=== PATIENT | female | born 1980 | race Caucasian/White ===

== ENCOUNTER 2019-06-28 05:39 | Day surgery (SDC) | payer OTHER ==
[2019-06-21 10:14] LABS: ABSOLUTE EOSINOPHILS # (AUTO) 0.1 10^3/uL (0.0-0.6); ABSOLUTE LYMPHOCYTES (AUTO) 1.7 10^3/uL (0.5-4.7); ABSOLUTE MONOCYTES (AUTO) 0.4 10^3/uL (0.1-1.4); ABSOLUTE NEUT (AUTO) 2.8 10^3/uL (1.7-8.2); BASOPHILS % (AUTO) 0.8 % (0-2); EOSINOPHILS % (AUTO) 1.8 % (0-6); HEMATOCRIT 37.4 % (36.0-47.0); HEMOGLOBIN 12.9 g/dL (12.0-15.5); LYMPHOCYTES % (AUTO) 33.7 % (13-45); MEAN CORPUSCULAR HEMOGLOBIN 31.7 pg (27.0-33.4); MEAN CORPUSCULAR HGB CONC 34.5 g/dL (32.0-36.0); MEAN CORPUSCULAR VOLUME 92 fl (80-97); MONOCYTES % (AUTO) 7.8 % (3-13); PLATELET COUNT 202 10^3/uL (150-450); RED BLOOD COUNT 4.07 10^6/uL (3.72-5.28); SEGMENTED NEUTROPHILS % (AUTO) 55.9 % (42-78); TOTAL CELLS COUNTED % (AUTO) 100 %
[2019-06-21 10:48] LABS: ANION GAP 10 (5-19); BLOOD UREA NITROGEN 12 mg/dL (7-20); CALCIUM 9.7 mg/dL (8.4-10.2); CARBON DIOXIDE 25 mmol/L (22-30); CHLORIDE 105 mmol/L (98-107); GLUCOSE 87 mg/dL (75-110); POTASSIUM 4.2 mmol/L (3.6-5.0)
--- NOTE | 2019-06-21 22:17 | EKG REPORT ---
SEVERITY:- NORMAL ECG - SINUS RHYTHM : Confirmed by: Toy Vincent 21-Jun-2019 22:16:19
[~2019-06-28 05:39] MED LIST: CEFAZOLIN 1 GM/D5W RTU 1 GM/50 ML RTUPB IV ONE; CEFAZOLIN 1 GM/D5W RTU 1 GM/50 ML RTUPB IV PRN; LACTATED RINGERS 1000 ML IV PRN; LIDOCAINE 0.5% INJ-PF (5 MG/ML) 50 ML SDV SUBCUT PRN
[2019-06-28 06:12] LABS: APPEARANCE,URINE SLIGHTLY-CLOUDY; BILIRUBIN,URINE NEGATIVE (NEGATIVE); COLOR,URINE YELLOW; GLUCOSE, URINE NEGATIVE (NEGATIVE); KETONES,URINE NEGATIVE (NEGATIVE); LEUKOCYTE ESTERASE,URINE NEGATIVE (NEGATIVE); NITRITE,URINE NEGATIVE (NEGATIVE); PROTEIN,URINE NEGATIVE (NEGATIVE); URINE SPECIFIC GRAVITY 1.018
[2019-06-28] MEDS ORDERED: FENTANYL CITRATE INJ/PF 250 MCG/5 ML AMPULE ONE (06:41)
[2019-06-28] MEDS ORDERED: MIDAZOLAM 2 MG/2 ML INJ ONE (06:41)
[2019-06-28] MEDS ORDERED: PROPOFOL INJ 200 MG/20 ML VIAL IV ONE (06:42)
[2019-06-28] MEDS ORDERED: DIPHENHYDRAMINE HCL 50 MG/ML VIAL IV PRN (06:53)
[2019-06-28] MEDS ORDERED: FENTANYL CITRATE INJ/PF 100 MCG/2 ML AMPUL IV PRN ×3 (06:53)
[2019-06-28] MEDS ORDERED: ONDANSETRON HCL INJ/PF 4 MG/2 ML SDV IV PRN (06:53)
[2019-06-28] MEDS ORDERED: LIDOCAINE 1% INJ-PF (10 MG/ML) 30 ML SDV ONE (07:10)
[2019-06-28 07:15] LABS: INTERNATIONAL RATION (INR) 1.04; PROTHROMBIN TIME 13.6 SEC (11.4-15.4)
[2019-06-28] MEDS ORDERED: BUPIVACAINE HCL 0.25 % INJ/PF (2.5 MG/1 ML) 30 ML VIAL ONE (07:22)
[2019-06-28 07:23] LABS: ALBUMIN 4.2 g/dL (3.5-5.0); ALKALINE PHOSPHATASE 89 U/L (38-126); ASPARTATE AMINO TRANSFERASE 21 U/L (14-36); BILIRUBIN,DIRECT 0.1 mg/dL (0.0-0.4); BILIRUBIN,TOTAL 0.5 mg/dL (0.2-1.3); TOTAL PROTEIN 6.8 g/dL (6.3-8.2)
[2019-06-28] MEDS ORDERED: SCOPOLAMINE HYDROBROMIDE 1.5 MG PATCH.TD72 ONE (07:29)
[2019-06-28] MEDS ORDERED: SUGAMMADEX SODIUM 200 MG/2 ML SDV IV ONE (08:20)
[2019-06-28] MEDS ORDERED: OXYCODONE-ACETAMINOPHEN 5-325 MG TABLET PO PRN (08:52)
[2019-06-28] MEDS ORDERED: KETOROLAC TROMETHAMINE INJ/PF 30 MG/1 ML SDV ONE (08:57)
[2019-06-28] MEDS ORDERED: PROMETHAZINE HCL INJ 25 MG/1 ML VIAL ONE (09:28)
[2019-06-28] MEDS ORDERED: OXYCODONE-ACETAMINOPHEN 5-325 MG TABLET ONE (09:39)
[2019-06-28 12:04] VITALS: BP 109/65
[2019-06-28] MEDS ORDERED: NEOSTIGMINE METHYLSULFATE 10 MG/10 ML VIAL ONE (12:35)
[2019-06-28] MEDS ORDERED: METOCLOPRAMIDE HCL INJ/PF 10 MG/2 ML SDV ONE (12:35)
[2019-06-28] MEDS ORDERED: GLYCOPYRROLATE 1 MG/5 ML VIAL ONE (12:35)
[2019-06-28] MEDS ORDERED: ONDANSETRON HCL INJ/PF 4 MG/2 ML SDV ONE (12:35)
[2019-06-28] MEDS ORDERED: ROCURONIUM BROMIDE INJ 50 MG/5 ML VIAL IV ONE (12:35)
[2019-06-28] MEDS ORDERED: LIDOCAINE 2% INJ-PF (20 MG/ML) 2 ML AMPUL ONE (12:35)
--- NOTE | 2019-07-16 16:00 | Operative Report ---
Operative Report DATE OF SURGERY: 06/28/19 PREOPERATIVE DIAGNOSIS: Pelvic pain POSTOPERATIVE DIAGNOSIS: Same OPERATION: D&C laparoscopy SURGEON: JESSENIA DURON ANESTHESIA: GA TISSUE REMOVED OR ALTERED: Endometrium COMPLICATIONS: None QUANTITATIVE BLOOD LOSS: 25 INTRAOPERATIVE FINDINGS: Bilateral hydrosalpinx with dense adhesions between the uterus and the abdominal wall PROCEDURE: Patient was brought into the operating room. She was placed on the table in a supine position and inducted under general anesthesia. Patient was repositioned in a dorsolithotomy position. The bladder was drained of 100 cc of clear yellow urine. A pelvic examination was then performed under general anesthesia. A bivalve speculum was inserted and opened. The cervix was grasped on its anterior lip with a single-tooth tenaculum. Uterus was sounded to 7 cm. A tenaculum and probe was inserted. The bivalve speculum was removed. Attention was turned toward the abdominal wall. A veress needle was inserted through the umbilicus and carried through the various layers until the abdominal cavity was entered. A drop of saline was placed in the veress needle and the abdomen was picked up. The drop of saline easily egressed into the abdominal cavity. The CO2 insufflator was then hooked up and turned on. Opening pressures were 5 cm of water. The insufflator was then turned onto high flow and approximately 3 L of C02 were injected to establish a pneumoperitoneum. Having established the pneumoperitoneum the varess needle was removed and a small incision was made infraumbilically. Through this incision a trocar and sleeve were inserted. The trocar was then removed. Through the sleeve a laparoscope was then inserted. There was good visualization of the pelvic structures. The laparoscope was then repositioned and the rest of the abdominal cavity was visualized and photographed. This terminated the procedure. The CO2 was disconnected and the pneumoperitoneum was then deflated. The equipment was then removed. The defect in the fascia was then repaired with 0 Vicryl. The skin edges were reapproximated with a subcuticular using 4-0 Prolene. Attention was then turned back to the vagina the tenaculum probe was then removed. Is no evidence of active bleeding at this point in time. This terminated the procedure. Patient was placed back in the lithotomy position. Anesthesia was then discontinued. And the patient transferred to recovery room in satisfactory condition. Estima carlos blood loss was negligible
== END 2019-06-28 10:45 | disposition home or self-care (01) ==
LOC: OROUT 05:39
PROVIDERS: ATTEND Obstetrics & Gynecology
DX: N93.8 Other specified abnormal uterine and vaginal bleeding (principal); R10.2 Pelvic and perineal pain; N73.6 Female pelvic peritoneal adhesions (postinfective); N70.11 Chronic salpingitis; J45.909 Unspecified asthma, uncomplicated; I73.00 Raynaud's syndrome without gangrene; K44.9 Diaphragmatic hernia without obstruction or gangrene; Z88.2 Allergy status to sulfonamides; Z79.899 Other long term (current) drug therapy
CPT/HCPCS: 93005; 36415 ×2; 85025; 85610; 85730; 81025; 80076; 80048; 81001; 93010; 00840; 58120; 49320; J2250; J0690; J3490 ×5; J3010; J1885; J2765; J2710; J2550; J2405; J2704; 840

== ENCOUNTER 2019-11-30 17:51 | Emergency (ER) | payer OTHER ==
--- NOTE | 2019-11-30 18:06 | ER Document Report ---
ED Medical Screen (RME) - General Chief Complaint: Nausea Stated Complaint: SHAKING,NAUSEA Time Seen by Provider: 11/30/19 17:58 Primary Care Provider: ESTRADA BECK PA-C [Primary Care Provider] - Follow up as needed Notes: 39-year-old female presents for nausea/vomiting that started today and low-grade fever of 100.4. Patient states she is also had a cough. Patient went to [facility] and was sent to the ER for concern of coronavirus. Patient denies any travel outside of [place]. Patient states her is currently stationed in [place] in the [employer] there are quarantined due to coronavirus and he sent her a sealed package recently but she has not opened this yet. Patient states her is not having any symptoms. Lungs clear to auscultation bilaterally. Abdomen soft nontender. I have greeted and performed a rapid initial assessment of this patient. A comprehensive ED assessment and evaluation of the patient, analysis of test results and completion of the medical decision making process with be conducted by additional ED providers. TRAVEL OUTSIDE OF THE [place] IN LAST 30 DAYS: No - Related Data Allergies/Adverse Reactions: Sulfa (Sulfonamide Antibiotics) Allergy (Severe, Verified 06/21/19 08:30) Seizures acetaminophen [From Lortab] Allergy (Verified 06/28/19 05:51) hydrocodone [From Lortab] Allergy (Verified 06/28/19 05:51) Past Medical History - Past Medical History Cardiac Medical History: Denies: Hx Coronary Artery Disease, Hx Heart Attack, Hx Hypertension Pulmonary Medical History: Reports: Hx Asthma - albuterol prn Denies: Hx Bronchitis, Hx COPD, Hx Pneumonia Neurological Medical History: Denies: Hx Cerebrovascular Accident, Hx Seizures Musculoskeltal Medical History: Denies Hx Arthritis - Immunizations Hx Diphtheria, Pertussis, Tetanus Vaccination: Yes - unk Physical Exam - Vital signs Vitals: Temp Pulse Resp BP Pulse Ox 98.0 F 113 H 18 133/76 H 100 11/30/19 17:55 11/30/19 17:55 11/30/19 17:55 11/30/19 17:55 11/30/19 17:55 Course - Vital Signs Vital signs: Temp Pulse Resp BP Pulse Ox 98.0 F 113 H 18 133/76 H 100 11/30/19 17:55 11/30/19 17:55 11/30/19 17:55 11/30/19 17:55 11/30/19 17:55 Doctor's Discharge - Discharge Referrals: ESTRADA BECK PA-C [Primary Care Provider] - Follow up as needed
--- NOTE | 2019-11-30 18:30 | RADIOLOGY REPORT (SQ) ---
EXAM DESCRIPTION: CHEST 2 VIEWS COMPLETED DATE/TIME: 11/30/2019 6:20 pm REASON FOR STUDY: cough, fever COMPARISON: None. TECHNIQUE: Frontal and lateral radiographic views of the chest acquired. NUMBER OF VIEWS: Two view. LIMITATIONS: None. FINDINGS: LUNGS AND PLEURA: No opacities, masses or pneumothorax. No pleural effusion. MEDIASTINUM AND HILAR STRUCTURES: No masses or contour abnormalities. HEART AND VASCULAR STRUCTURES: Heart normal size. No evidence for failure. BONES: No acute findings. HARDWARE: None in the chest. OTHER: No other significant finding. IMPRESSION: NO SIGNIFICANT RADIOGRAPHIC FINDING IN THE CHEST. TECHNICAL DOCUMENTATION: JOB ID: [id number] 2010 [employer]- All Rights Reserved Reading location - IP/workstation name: [email or web address]
--- NOTE | 2019-11-30 18:39 | ER Document Report ---
ED General - General Chief Complaint: Nausea Stated Complaint: SHAKING,NAUSEA Time Seen by Provider: 11/30/19 17:58 Primary Care Provider: ESTRADA BECK PA-C [Primary Care Provider] - Follow up as needed Notes: per triage note patient arrives to er with a complaint of nausea, dry cough, shortness of breath and "tremors" patient states she went to [facility] and they sent her here because of "symptoms of hobson virus" patient has not traveled out of the country or had contact with anyone who has traveled out of the country or infected with hobson virus. patient states her coughing started last night and kept her up. patient states she has a hx of asthma and had to use her inhaler. patient states she "felt cruddy" so she checked her temperature and it was "around 100.4" patient states she took motrin around 1500 and took zofran around 1715. patient provided with a mask at this time. patient breaths e/u, nad 39-year-old female presents for nausea/vomiting that started today and low-grade fever of 100.4. Patient states she is also had a cough. Patient went to [facility] and was sent to the ER for concern of coronavirus. Patient denies any travel outside of [place]. Patient states her is currently stationed in [place] in the [employer] there are quarantined due to coronavirus and he sent her a sealed package recently but she has not opened this yet. Patient states her is not having any symptoms. Lungs clear to auscultation bilaterally. Abdomen soft nontender. Because of protocol and coronavirus alerts at this time by CDC and health department.. We called office machine embossograph operator who called health department and I also called [facility] ED I spoke with Dr Moreira at @ [phone] And she advised no packages have been vectors for dz; also I spoke with Health Dept Pieter at 1904 who advised same criteria plus flu/resp panels first before coronavirus testing. Patient herself reports she was walking to the desk and felt lightheaded and dizzy and had tremors. She has a history of hypoglycemia but had eaten some peanut butter and applesauce to take with her Motrin prior to arrival. Patient has a history of asthma since she was a baby and was tested by skin prick for allergens on her back at by age 6. 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 She has been wiping down her doorknobs and her refrigerator doors and flexors to the toilet all with Lysol wipes. She did go to [employer] this week but wipe down everything with a cleansing wipe. Patient has been feeling dizzy as well with some sore throat. TRAVEL OUTSIDE OF THE U.S. IN LAST 30 DAYS: No - HPI Onset/Duration: Sudden Associated symptoms: Body/muscle aches, Nonproductive cough, Fever, Headache, Na usea Exacerbated by: Denies Relieved by: Denies Similar symptoms previously: No Recently seen / treated by doctor: No - Related Data Allergies/Adverse Reactions: Sulfa (Sulfonamide Antibiotics) Allergy (Severe, Verified 06/21/19 08:30) Seizures acetaminophen [From Lortab] Allergy (Verified 06/28/19 05:51) hydrocodone [From Lortab] Allergy (Verified 06/28/19 05:51) Home Medications: cymbalta, adderall, fioricet, vit d, iron, b12 Past Medical History - General Information source: Patient - Social History Smoking Status: Never Smoker Cigarette use (# per day): No Chew tobacco use (# tins/day): No Smoking Education Provided: No Frequency of alcohol use: None Drug Abuse: None Lives with: Family Family History: Reviewed & Not Pertinent Patient has suicidal ideation: No Patient has homicidal ideation: No - Past Medical History Cardiac Medical History: Denies: Hx Coronary Artery Disease, Hx Heart Attack, Hx Hypertension Pulmonary Medical History: Reports: Hx Asthma - albuterol prn Denies: Hx Bronchitis, Hx COPD, Hx Pneumonia Neurological Medical History: Denies: Hx Cerebrovascular Accident, Hx Seizures Musculoskeletal Medical History: Denies Hx Arthritis - Immunizations Hx Diphtheria, Pertussis, Tetanus Vaccination: Yes - unk Review of Systems - Review of Systems Constitutional: See HPI, Fever, Malaise, Weakness EENT: No symptoms reported, Other - Eye injection Cardiovascular: See HPI, Heart racing Respiratory: See HPI, Cough Gastrointestinal: No symptoms reported Genitourinary: No symptoms reported Female Genitourinary: No symptoms reported Musculoskeletal: See HPI, Muscle stiffness Skin: No symptoms reported Hematologic/Lymphatic: No symptoms reported Neurological/Psychological: No symptoms reported Physical Exam - Vital signs Vitals: Temp Pulse Resp BP Pulse Ox 98.0 F 113 H 18 133/76 H 100 11/30/19 17:55 11/30/19 17:55 11/30/19 17:55 11/30/19 17:55 11/30/19 17:55 - HEENT Head: Normocephalic Eyes: Normal Conjunctiva: Normal Cornea: Normal Extraocular movements intact: Yes Eyelashes: Normal Pupils: PERRL Mucous membranes: Normal Pharynx: Erythema, Uvular edema Neck: Normal - Respiratory Respiratory status: No respiratory distress Chest status: Nontender Breath sounds: Normal Chest palpation: Normal - Cardiovascular Rhythm: Regular Heart sounds: Normal auscultation Murmur: No Friction rub: No Carly's crunch: No - Abdominal Inspection: Normal Distension: No distension Bowel sounds: Normal Tenderness: Nontender Organomegaly: No organomegaly - Back Back: Normal - Extremities General upper extremity: Normal inspection General lower extremity: Normal inspection - Neurological Neuro grossly intact: Yes Cognition: Normal Orientation: AAOx4 [place] Coma Scale Eye Opening: Spontaneous Mitzi Coma Scale Verbal: Oriented Mitzi Coma Scale Motor: Obeys Commands Mitzi Coma Scale Total: 15 Speech: Normal Cranial nerves: Normal Cerebellar coordination: Normal Motor strength normal: LUE, RUE, LLE, RLE - Psychological Associated symptoms: Normal affect - Skin Skin Temperature: Warm Skin Moisture: Dry Course - Vital Signs Vital signs: Temp Pulse Resp BP Pulse Ox 98.0 F 113 H 20 133/76 H 100 11/30/19 17:55 11/30/19 17:55 11/30/19 19:37 11/30/19 17:55 11/30/19 19:37 - Laboratory Result Diagrams: 11/30/19 18:15 11/30/19 18:15 Laboratory results interpreted by me: 11/30/19 18:15 Glucose 126 H - Diagnostic Test Radiology reviewed: Reports reviewed - EKG Interpretation by Me EKG shows normal: Sinus rhythm Rate: Normal Rhythm: NSR Critical Care Note - Critical Care Note Total time excluding time spent on procedures (mins): 90 Comments: I advised patient of findings of laboratory reports and CT x-ray reports and advised her to follow-up with personal doctor if symptoms persist or continue and may return to ER ifsxa persist and are more severe. Discharge - Discharge Clinical Impression: URI (upper respiratory infection) Qualifiers: URI type: unspecified viral URI Qualified Code(s): J06.9 - Acute upper respiratory infection, unspecified Condition: Good Disposition: HOME, SELF-CARE Additional Instructions: Follow-up with personal doctor return to ER as needed take medicines as directed encourage fluids and use chamomile tea if flu symptoms persist. Use the Decadron steroid and Xofluza as needed for viral sickness. Prescriptions: Dexamethasone [Decadron 4 Mg Tablet] 4 mg PO DAILY #4 tablet Levofloxacin [Levaquin 500 mg Tablet] 500 mg PO DAILY #5 tablet Referrals: ESTRADA BECK PA-C [Primary Care Provider] - Follow up as needed
[2019-11-30 18:47] LABS: ABSOLUTE EOSINOPHILS # (AUTO) 0.1 10^3/uL (0.0-0.6); ABSOLUTE LYMPHOCYTES (AUTO) 2.9 10^3/uL (0.5-4.7); ABSOLUTE MONOCYTES (AUTO) 0.5 10^3/uL (0.1-1.4); ABSOLUTE NEUT (AUTO) 3.5 10^3/uL (1.7-8.2); BASOPHILS % (AUTO) 0.5 % (0-2); EOSINOPHILS % (AUTO) 1.5 % (0-6); HEMATOCRIT 37.9 % (36.0-47.0); MEAN CORPUSCULAR HEMOGLOBIN 31.8 pg (27.0-33.4); MEAN CORPUSCULAR HGB CONC 34.5 g/dL (32.0-36.0); MEAN CORPUSCULAR VOLUME 92 fl (80-97); RED BLOOD COUNT 4.11 10^6/uL (3.72-5.28); RED CELL DISTRIBUTION WIDTH 13.1 % (11.5-14.0); TOTAL CELLS COUNTED % (AUTO) 100 %
[2019-11-30 19:01] LABS: A TYPE INFLUENZA AG NEGATIVE (NEGATIVE); B INFLUENZA AG NEGATIVE (NEGATIVE)
[2019-11-30 19:09] LABS: ALBUMIN 4.5 g/dL (3.5-5.0); ALKALINE PHOSPHATASE 93 U/L (38-126); ANION GAP 14 (5-19); ASPARTATE AMINO TRANSFERASE 20 U/L (14-36); BILIRUBIN,DIRECT 0.3 mg/dL (0.0-0.4); BILIRUBIN,TOTAL 0.4 mg/dL (0.2-1.3); BLOOD UREA NITROGEN 15 mg/dL (7-20); CALCIUM 9.4 mg/dL (8.4-10.2); CARBON DIOXIDE 24 mmol/L (22-30); CHLORIDE 100 mmol/L (98-107); GLUCOSE 126 mg/dL (75-110); POTASSIUM 3.9 mmol/L (3.6-5.0); TOTAL PROTEIN 7.3 g/dL (6.3-8.2)
[2019-11-30 19:17] LABS: PLATELET COUNT 221 10^3/uL (150-450)
[2019-11-30 19:31] LABS: APPEARANCE,URINE SLIGHTLY-CLOUDY; BILIRUBIN,URINE NEGATIVE (NEGATIVE); CALCIUM OXALATE CRYSTALS,URINE FEW /HPF; COLOR,URINE YELLOW; GLUCOSE, URINE NEGATIVE (NEGATIVE); KETONES,URINE NEGATIVE (NEGATIVE); PROTEIN,URINE NEGATIVE (NEGATIVE); URINE SPECIFIC GRAVITY 1.019; UROBILINOGEN,URINE NEGATIVE mg/dL (<2.0)
--- NOTE | 2019-11-30 20:45 | RADIOLOGY REPORT (SQ) ---
CT HEAD WITHOUT IV CONTRAST EXAM DATE: 11/30/2019 7:46 PM LAY OUT FORMER HISTORY: BOOGIE. COMPARISON: None. TECHNIQUE: CT scan of the brain without IV contrast. This exam was performed according to our departmental dose-optimization program, which includes automated exposure control, adjustment of the mA and/or kV according to patient size and/or use of iterative reconstruction technique. FINDINGS: The ventricles, cisterns, and sulci are age-appropriate. No evidence of acute infarction, intracranial hemorrhage, extra-axial fluid collection, or midline shift. No air-fluid levels are seen in the paranasal sinuses to suggest acute sinusitis. No depressed skull fracture. IMPRESSION: No acute intracranial findings.
[2019-11-30 21:39] VITALS: BP 126/85
== END 2019-11-30 21:55 | disposition home or self-care (01) ==
LOC: ER 17:51
DX: J06.9 Acute upper respiratory infection, unspecified (principal); B97.89 Other viral agents as the cause of diseases classified elsewhere; R05 Cough; R06.02 Shortness of breath; M79.10 Myalgia, unspecified site; R11.2 Nausea with vomiting, unspecified; R50.9 Fever, unspecified; R42 Dizziness and giddiness; J02.9 Acute pharyngitis, unspecified; R53.81 Other malaise; R53.1 Weakness; J45.909 Unspecified asthma, uncomplicated; Z79.899 Other long term (current) drug therapy; Z79.891 Long term (current) use of opiate analgesic; Z88.2 Allergy status to sulfonamides; Z88.8 Allergy status to other drugs, medicaments and biological substances; Z88.6 Allergy status to analgesic agent; Z88.5 Allergy status to narcotic agent
CPT/HCPCS: 36415; 70450; 71046; 80053; 81001; 84703; 85025; 87070; 87804; 87880; 99284

== ENCOUNTER 2020-01-06 21:46 | Emergency (ER) | payer OTHER ==
--- NOTE | 2020-01-06 22:25 | RADIOLOGY REPORT (SQ) ---
CLINICAL INDICATION: COUGH/SOB. TECHNIQUE: A single portable AP view was obtained of the chest at 2205 hours. COMPARISON: December 27, 2019. FINDINGS: The cardiomediastinal silhouette is normal. The lungs are grossly clear. No evidence of effusion or pneumothorax. The visualized bones are unremarkable. Mild hyperinflation, no adverse change IMPRESSION: No evidence of active intrathoracic disease.
[2020-01-06 22:28] LABS: ABSOLUTE EOSINOPHILS # (AUTO) 0.1 10^3/uL (0.0-0.6); ABSOLUTE MONOCYTES (AUTO) 0.6 10^3/uL (0.1-1.4); ABSOLUTE NEUT (AUTO) 4.4 10^3/uL (1.7-8.2); BASOPHILS % (AUTO) 0.5 % (0-2); EOSINOPHILS % (AUTO) 1.4 % (0-6); HEMATOCRIT 39.7 % (36.0-47.0); HEMOGLOBIN 14.1 g/dL (12.0-15.5); LYMPHOCYTES % (AUTO) 28.2 % (13-45); MEAN CORPUSCULAR HEMOGLOBIN 32.5 pg (27.0-33.4); MEAN CORPUSCULAR HGB CONC 35.6 g/dL (32.0-36.0); MEAN CORPUSCULAR VOLUME 91 fl (80-97); MONOCYTES % (AUTO) 8.3 % (3-13); PLATELET COUNT 227 10^3/uL (150-450); RED BLOOD COUNT 4.34 10^6/uL (3.72-5.28); RED CELL DISTRIBUTION WIDTH 12.6 % (11.5-14.0); SEGMENTED NEUTROPHILS % (AUTO) 61.6 % (42-78); TOTAL CELLS COUNTED % (AUTO) 100 %; WHITE BLOOD COUNT 7.2 10^3/uL (4.0-10.5)
[2020-01-06 22:48] LABS: ALBUMIN 4.9 g/dL (3.5-5.0); ALKALINE PHOSPHATASE 87 U/L (38-126); ANION GAP 8 (5-19); ASPARTATE AMINO TRANSFERASE 19 U/L (14-36); BILIRUBIN,TOTAL 0.4 mg/dL (0.2-1.3); BLOOD UREA NITROGEN 12 mg/dL (7-20); CALCIUM 10.1 mg/dL (8.4-10.2); CARBON DIOXIDE 26 mmol/L (22-30); CHLORIDE 106 mmol/L (98-107); CREATINE KINASE 44 U/L (30-135); GLUCOSE 125 mg/dL (75-110); POTASSIUM 4.1 mmol/L (3.6-5.0); TOTAL PROTEIN 7.6 g/dL (6.3-8.2)
[2020-01-06 23:00] LABS: CREATINE KINASE MB 0.27 ng/mL (<4.55)
[2020-01-06 23:01] LABS: TROPONIN I < 0.012 ng/mL
--- NOTE | 2020-01-06 23:28 | ER Document Report ---
ED General - General Chief Complaint: Chest Pain Stated Complaint: CHEST PAINS, SHORTNESS OF BREATH Time Seen by Provider: 01/06/20 23:24 Primary Care Provider: ESTRADA BECK PA-C [Primary Care Provider] - Follow up as needed Notes: Patient is a 39-year-old female that comes emergency department for chief complaint of sick symptoms for the past 6 days. She states initially she felt nauseated, then she developed a sore throat, then she developed an intermittent dry cough. She states she started feeling better, she was actually tested 2 days ago (Friday) at [facility] for strep, influenza, and the coronavirus. Strep and influenza were negative, coronavirus pending. Patient states that over the past day she has felt worse, she has felt lightheaded, has had intermittent tightness in her chest, has felt more nauseated, and has felt more rundown. She denies spiking fevers, maximum temperature at home was 100.1 over the course of 6 days. She reports a history of asthma, pneumonia, adhesions after a with planned hysterectomy and some degree of chronic lower abdominal pain. She is using albuterol at home. She denies current shortness of breath or chest pain. TRAVEL OUTSIDE OF THE [place] IN LAST 30 DAYS: No - Related Data Allergies/Adverse Reactions: Sulfa (Sulfonamide Antibiotics) Allergy (Severe, Verified 06/21/19 08:30) Seizures acetaminophen [From Lortab] Allergy (Verified 06/28/19 05:51) hydrocodone [From Lortab] Allergy (Verified 06/28/19 05:51) Home Medications: adderall Past Medical History - General Information source: Patient - Social History Smoking Status: Never Smoker Chew tobacco use (# tins/day): No Frequency of alcohol use: None Drug Abuse: None Lives with: Family Family History: Reviewed & Not Pertinent Patient has suicidal ideation: No Patient has homicidal ideation: No - Past Medical History Cardiac Medical History: Denies: Hx Coronary Artery Disease, Hx Heart Attack, Hx Hypertension Pulmonary Medical History: Reports: Hx Asthma - albuterol prn Denies: Hx Bronchitis, Hx COPD, Hx Pneumonia Neurological Medical History: Denies: Hx Cerebrovascular Accident, Hx Seizures Musculoskeletal Medical History: Denies Hx Arthritis Past Surgical History: Reports: Hx Section, Hx Gynecologic Surgery - laproscopic ovaries - Immunizations Hx Diphtheria, Pertussis, Tetanus Vaccination: Yes - unk Review of Systems - Review of Systems Constitutional: See HPI EENT: See HPI Cardiovascular: See HPI Respiratory: See HPI Gastrointestinal: See HPI Genitourinary: No symptoms reported Female Genitourinary: No symptoms reported Musculoskeletal: No symptoms reported Skin: No symptoms reported Hematologic/Lymphatic: No symptoms reported Neurological/Psychological: No symptoms reported Physical Exam - Vital signs Vitals: Temp Resp Pulse Ox 98.3 F 19 99 01/06/20 21:48 01/06/20 21:48 01/06/20 21:48 - Notes Notes: GENERAL: Alert, interacts well. No acute distress. HEAD: Normocephalic, atraumatic. EYES: Pupils equal, round, and reactive to light. Extraocular movements intact. ENT: Oral mucosa moist, tongue midline. Oropharynx with minimal erythema. Airway patent. Nares patent, sinuses non-tender, ear canals unremarkable, TM's intact. NECK: Full range of motion. Supple. Trachea midline. No lymphadenopathy. LUNGS: Clear to auscultation bilaterally, no wheezes, rales, or rhonchi. No respiratory distress. Non-tender chest wall. Occasional mild cough. HEART: Borderline tachycardic, normal rhythm, no murmur ABDOMEN: Soft, non-tender. Non-distended. Bowel sounds present in all 4 quadrants. GENITOURINARY: Deferred EXTREMITIES: Moves all 4 extremities spontaneously. No edema, normal radial and dorsalis pedis pulses bilaterally. No cyanosis. BACK: no cervical, thoracic, lumbar midline tenderness. No saddle anesthesia, normal distal neurovascular exam. Moves all extremities in full range of motion. NEUROLOGICAL: Alert and oriented x3. Normal speech. Cranial nerves II through XII grossly intact. Strength 5/5 in all extremities. PSYCH: Normal affect, normal mood. SKIN: Warm, dry, normal turgor. No rashes or lesions noted. Course - Re-evaluation Re-evalutation: Patient is well-appearing on my exam. She has clear lungs, occasional cough, no tachypnea, soft abdomen, unremarkable ENT exam, unremarkable skin exam. Vital signs are unremarkable initially except for tachycardia. This resolved after IV fluids. Patient also had a mild headache that she complained about midway thr ough her visit but this resolved with Toradol and Zofran. CBC unremarkable, chemistry unremarkable, troponin negative, hCG negative, chest x-ray clear, EKG unremarkable. Patient already had negative influenza and strep testing and already was tested for the coronavirus outpatient. Discussed with patient. Patient was given dexamethasone to assist with her overall symptoms, patient already has home medications, patient has good follow- up, I discussed return precautions in detail. Patient states appreciation and agreement. Stable and well-appearing at time of discharge. - Vital Signs Vital signs: Temp Pulse Resp BP Pulse Ox 98.3 F 13 116/78 100 01/07/20 02:01 01/07/20 02:01 01/07/20 02:01 01/07/20 02:01 - Laboratory Result Diagrams: 01/06/20 20:17 01/06/20 20:17 Laboratory results interpreted by me: 01/06/20 01/07/20 20:17 00:10 Glucose 125 H Urine Urobilinogen 4.0 H - EKG Interpretation by Me Additional EKG results interpreted by me: EKG shows sinus tachycardia at a rate of 108, QTc 451, VA interval of 124. Normal axis. No T wave inversions resting changes in consecutive leads. Discharge - Discharge Clinical Impression: Cough, Nausea, Body aches Chest pain Qualifiers: Chest pain type: unspecified Qualified Code(s): R07.9 - Chest pain, unspecified Condition: Stable Disposition: HOME, SELF-CARE Additional Instructions: Your evaluation and work-up are reassuring. This does appear to be viral and should resolve with time. You have been treated with IV fluids and dexamethasone. Continue home medications, drink plenty fluids, and rest. Follow-up with primary care. Return if you worsen including spiking fevers, vomiting, difficulty breathing, or any other concerning or worsening symptoms. Forms: Return to Work Referrals: ESTRADA BECK PA-C [Primary Care Provider] - Follow up as needed
[2020-01-06] MEDS ORDERED: NORMAL SALINE 1000 ML 1,000 ML IV ONE (23:47)
[2020-01-07 00:29] LABS: APPEARANCE,URINE SLIGHTLY-CLOUDY; BILIRUBIN,URINE NEGATIVE (NEGATIVE); COLOR,URINE YELLOW; GLUCOSE, URINE NEGATIVE (NEGATIVE); KETONES,URINE NEGATIVE (NEGATIVE); LEUKOCYTE ESTERASE,URINE NEGATIVE (NEGATIVE); NITRITE,URINE NEGATIVE (NEGATIVE); PROTEIN,URINE NEGATIVE (NEGATIVE); URINE SPECIFIC GRAVITY 1.019
[2020-01-07] MEDS ORDERED: DEXAMETHASONE SOD PHOS INJ 10 MG/1 ML VIAL IV ONE (00:35)
[2020-01-07] MEDS ORDERED: ONDANSETRON HCL INJ/PF 4 MG/2 ML SDV IV ONE (00:35)
[2020-01-07] MEDS ORDERED: KETOROLAC TROMETHAMINE INJ/PF 30 MG/1 ML SDV IV ONE (00:35)
[2020-01-07 02:27] VITALS: BP 116/78
--- NOTE | 2020-01-07 09:50 | EKG REPORT ---
SEVERITY:- OTHERWISE NORMAL ECG - SINUS TACHYCARDIA : Confirmed by: Larissa Day MD 07-Jan-2020 09:49:32
== END 2020-01-07 02:28 | disposition home or self-care (01) ==
LOC: ER 21:46
DX: R07.9 Chest pain, unspecified (principal); R05 Cough; R11.0 Nausea; M79.10 Myalgia, unspecified site; J02.9 Acute pharyngitis, unspecified; R42 Dizziness and giddiness; R50.9 Fever, unspecified; J45.909 Unspecified asthma, uncomplicated; Z88.2 Allergy status to sulfonamides; Z88.8 Allergy status to other drugs, medicaments and biological substances; Z79.899 Other long term (current) drug therapy
CPT/HCPCS: 93005; 99284; 96361; 96374; 96375; 36415; 82553; 82550; 84703; 85025; 80053; 81001; 84484; 71045; 93010; J1885; J2405; J7030; J1100

== ENCOUNTER 2020-01-12 18:59 | Emergency (ER) | payer OTHER ==
[2020-01-12 21:03] LABS: A TYPE INFLUENZA AG NEGATIVE (NEGATIVE); B INFLUENZA AG NEGATIVE (NEGATIVE)
[2020-01-12] MEDS: NORMAL SALINE 1000 ML 1,000 ML IV PRN ×2 (21:30→22:35)
[2020-01-12 23:11] LABS: ABSOLUTE BASOPHILS # (AUTO) 0.1 10^3/uL (0.0-0.2); ABSOLUTE EOSINOPHILS # (AUTO) 0.1 10^3/uL (0.0-0.6); ABSOLUTE LYMPHOCYTES (AUTO) 2.5 10^3/uL (0.5-4.7); ABSOLUTE MONOCYTES (AUTO) 0.5 10^3/uL (0.1-1.4); BASOPHILS % (AUTO) 0.7 % (0-2); EOSINOPHILS % (AUTO) 1.3 % (0-6); HEMATOCRIT 35.7 % (36.0-47.0); HEMOGLOBIN 12.5 g/dL (12.0-15.5); MEAN CORPUSCULAR HEMOGLOBIN 31.9 pg (27.0-33.4); MEAN CORPUSCULAR VOLUME 91 fl (80-97); PLATELET COUNT 191 10^3/uL (150-450); RED BLOOD COUNT 3.91 10^6/uL (3.72-5.28); RED CELL DISTRIBUTION WIDTH 12.8 % (11.5-14.0); TOTAL CELLS COUNTED % (AUTO) 100 %; WHITE BLOOD COUNT 7.1 10^3/uL (4.0-10.5)
[2020-01-12 23:15] LABS: ALBUMIN 4.4 g/dL (3.5-5.0); ALKALINE PHOSPHATASE 76 U/L (38-126); ANION GAP 12 (5-19); ASPARTATE AMINO TRANSFERASE 29 U/L (14-36); BILIRUBIN,TOTAL 0.6 mg/dL (0.2-1.3); BLOOD UREA NITROGEN 11 mg/dL (7-20); CALCIUM 8.5 mg/dL (8.4-10.2); CARBON DIOXIDE 23 mmol/L (22-30); CHLORIDE 109 mmol/L (98-107); CREATINE KINASE 32 U/L (30-135); GLUCOSE 88 mg/dL (75-110); POTASSIUM 3.8 mmol/L (3.6-5.0); TOTAL PROTEIN 7.1 g/dL (6.3-8.2)
[2020-01-13 00:38] LABS: NT PRO BNP 62 pg/mL (<125); TROPONIN I < 0.012 ng/mL
--- NOTE | 2020-01-13 00:38 | RADIOLOGY REPORT (SQ) ---
EXAM DESCRIPTION: XR CHEST 1 VIEW COMPLETED DATE/TME: 01/12/2020 19:50 CLINICAL HISTORY: 39 years, Female, cough myalgia sob, hold pending hcg COMPARISON: 01/06/2020 chest NUMBER OF VIEWS: 1 TECHNIQUE: Portable chest LIMITATIONS: None. FINDINGS: The heart size is normal. Lungs are clear. No pneumothorax IMPRESSION: Negative chest copyright 2011 [employer]- All Rights Reserved
--- NOTE | 2020-01-13 01:17 | ER Document Report ---
ED General - General Chief Complaint: Flu Symptoms Stated Complaint: FLU SYMTPOMS Time Seen by Provider: 01/12/20 19:36 Primary Care Provider: ESTRADA BECK PA-C [Primary Care Provider] - TRAVEL OUTSIDE OF THE [place] IN LAST 30 DAYS: No - HPI Notes: 39-year-old female history of mild intermittent asthma presents with approximately 10 days of myalgia, malaise, sore throat, dry cough, nausea, vomiting. Now feels lightheaded when she goes from sitting to standing and has diffuse chest pain nonexertional no shortness of breath. Patient denies syncope, cardiac history, lower extremity edema, DVT/PE/hypercoagulability history, exogenous estrogen, cancer history, hemoptysis, sick contacts, immune compromise - Related Data Allergies/Adverse Reactions: Sulfa (Sulfonamide Antibiotics) Allergy (Severe, Verified 06/21/19 08:30) Seizures acetaminophen [From Lortab] Allergy (Verified 06/28/19 05:51) hydrocodone [From Lortab] Allergy (Verified 06/28/19 05:51) Past Medical History - General Information source: Patient - Social History Smoking Status: Never Smoker Chew tobacco use (# tins/day): No Frequency of alcohol use: None Drug Abuse: None Family History: Reviewed & Not Pertinent Patient has suicidal ideation: No Patient has homicidal ideation: No - Past Medical History Cardiac Medical History: Denies: Hx Coronary Artery Disease, Hx Heart Attack, Hx Hypertension Pulmonary Medical History: Reports: Hx Asthma - albuterol prn Denies: Hx Bronchitis, Hx COPD, Hx Pneumonia Neurological Medical History: Denies: Hx Cerebrovascular Accident, Hx Seizures Musculoskeletal Medical History: Denies Hx Arthritis Past Surgical History: Reports: Hx Section, Hx Gynecologic Surgery - laproscopic ovaries - Immunizations Hx Diphtheria, Pertussis, Tetanus Vaccination: Yes - unk Review of Systems - Review of Systems Notes: REVIEW OF SYSTEMS: CONSTITUTIONAL : Denies fever, chills, or sweats. EENT: +cold symptoms, +throat pain CARDIOVASCULAR: Denies chest pain, AYANA RESPIRATORY: +cough, denies shortness of breath. GASTROINTESTINAL: Denies abdominal pain, +nausea/vomiting. GENITOURINARY: Denies difficulty urinating, painful urination. FEMALE GENITOURINARY: Denies abnormal vaginal bleeding, vaginal discharge. MUSCULOSKELETAL: Denies neck pain, back pain. SKIN: Denies rash or skin lesions. HEMATOLOGIC : Denies easy bruising or bleeding. LYMPHATIC: Denies swollen, enlarged glands. NEUROLOGICAL: Denies headache, denies change in gait. PSYCHIATRIC: Denies anxiety or stress or depression. Physical Exam - Vital signs Vitals: Temp Pulse Resp BP Pulse Ox 98.6 F 92 20 130/72 H 100 01/12/20 18:59 01/12/20 18:59 01/12/20 18:59 01/12/20 18:59 01/12/20 18:59 - Notes Notes: PHYSICAL EXAMINATION: GENERAL: Well-appearing, well-nourished and in no acute distress. HEAD: Atraumatic, normocephalic. EYES: Pupils equal round and appropriate constriction, sclera anicteric, conjunctiva are normal. ENT: nares patent, dry mucous membranes. No tonsillar exudates or edema, normal oropharynx NECK: Normal range of motion, supple without lymphadenopathy LUNGS: Breath sounds clear to auscultation bilaterally and equal. No wheezes rales or rhonchi. HEART: Regular rate and rhythm without murmurs ABDOMEN: Soft, nontender, no guarding, no masses, no CVAT EXTREMITIES: Normal range of motion, no pitting or edema. No cyanosis. NEUROLOGICAL: Awake, alert, conversing appropriately, moves all extremities spontaneously. PSYCH: Normal mood, normal affect. SKIN: Warm, Dry, normal turgor, no rashes or lesions noted. Course - Re-evaluation Re-evalutation: 01/13/20 01:15 Given duration of symptoms concerning for novel coronavirus. Patient mildly dehydrated although well-appearing and has reassuring vital signs. Obtained EKG, troponin and BNP to rule out viral myocarditis given dizziness which were normal except for low voltage on EKG for which I performed bedside ultrasound which showed no pericardial effusion. Patient tolerating p.o., feels greatly improved after IV hydration. COVID test pending, instructed patient to quarantine until test results. Gave extensive return to ED precautions which she demonstrated understanding of. Patient has Zofran at home. - Vital Signs Vital signs: Temp Pulse Resp BP Pulse Ox 98.6 F 92 20 130/72 H 100 01/12/20 18:59 01/12/20 18:59 01/12/20 18:59 01/12/20 18:59 01/12/20 18:59 - Laboratory Result Diagrams: 01/12/20 23:00 01/12/20 22:26 Laboratory results interpreted by me: 01/12/20 01/12/20 22:26 23:00 Hct 35.7 L Chloride 109 H Discharge - Discharge Clinical Impression: Viral syndrome, Dehydration Condition: Good Disposition: HOME, SELF-CARE Additional Instructions: Patient was provided with discharge information including: As a person under investigation for Covid 19, the [facility], division of public health advises you to adhere to the following guidance until your test results are reported to you. If your test result is positive, you will receive additional information from your provider and your local health department at that time. Remain at home until you are cleared by the health provider or public health authorities. Keep a log of visitors to your home, notify any visitors to your home of your isolation status. If you plan to move to a new address or leave the critical access hospital, notify the local health department in your County. Call your doctor or seek care if you have an urgent medical need. Before seeking medical care, call ahead to get instructions from the provider before arriving at the medical office clinic or hospital. Notify them that you are being tested for the virus that causes Covid 19 so that arrangements can be made, as necessary, to prevent transmission to others in the healthcare setting. Next, notify the local health department in your county. If a medical emergency arises and you need to call 911, inform the first responders that you are being tested for the virus that causes Covid 19. Next, notify the local health department in your county. Return to ED immediately if you have worsening symptoms, worsening dizziness, fainting, are unable to keep down liquids by mouth, trouble breathing, or any other worsening or alarming symptoms. Follow-up with your primary doctor within 1 week. Referrals: ESTRADA BECK PA-C [Primary Care Provider] -
[2020-01-13 01:55] VITALS: BP 114/71
--- NOTE | 2020-01-13 07:11 | EKG REPORT ---
SEVERITY:- BORDERLINE ECG - SINUS RHYTHM LOW VOLTAGE THROUGHOUT : Confirmed by: Marciano Santiago MD 13-Jan-2020 07:10:36
== END 2020-01-13 02:01 | disposition home or self-care (01) ==
LOC: ER 18:59
DX: B34.9 Viral infection, unspecified (principal); Z20.828 Contact with and (suspected) exposure to other viral communicable diseases; M79.10 Myalgia, unspecified site; R53.81 Other malaise; J02.9 Acute pharyngitis, unspecified; R05 Cough; R11.2 Nausea with vomiting, unspecified; R42 Dizziness and giddiness; R07.9 Chest pain, unspecified; E86.0 Dehydration; J45.20 Mild intermittent asthma, uncomplicated; Z88.2 Allergy status to sulfonamides; Z88.8 Allergy status to other drugs, medicaments and biological substances; Z88.6 Allergy status to analgesic agent; Z88.5 Allergy status to narcotic agent
CPT/HCPCS: 93005; 99283; 96360; 96361; 36415; 87070; 87880; 82550; 84703; 85025; 87635; 80053; 84484; 87804; 83880; 71045; 93010; J7030

== ENCOUNTER 2020-06-29 17:13 | Emergency (ER) | payer OTHER ==
[2020-06-29 17:29] VITALS: BP 145/93
[2020-06-29] MEDS ORDERED: ONDANSETRON HCL INJ/PF 4 MG/2 ML SDV IV ONE ×2 (17:29→19:00)
[2020-06-29] MEDS ORDERED: NORMAL SALINE 1000 ML 1,000 ML IV ONE (17:29)
--- NOTE | 2020-06-29 17:32 | ER Document Report ---
ED Medical Screen (RME) - General Chief Complaint: Flu Symptoms Stated Complaint: FLU SYMPTOMS Time Seen by Provider: 06/29/20 17:21 Primary Care Provider: ESTRADA BECK PA-C [Primary Care Provider] - Follow up as needed Notes: Patient presents complaining of nausea and diarrhea for the past 2 days. Patient states she has been taking Zofran at home to help with her nausea. Patient reports 4 diarrhea bowel movements today. Patient complains of abdominal tenderness and sore throat. Patient reports low-grade temperature of 100 at home. I have greeted and performed a rapid initial assessment of this patient. A comprehensive ED assessment and evaluation of the patient, analysis of test results and completion of the medical decision making process will be conducted by additional ED providers. TRAVEL OUTSIDE OF THE [place] IN LAST 30 DAYS: No - Related Data Allergies/Adverse Reactions: Sulfa (Sulfonamide Antibiotics) Allergy (Severe, Verified 06/21/19 08:30) Seizures acetaminophen [From Lortab] Allergy (Verified 06/28/19 05:51) hydrocodone [From Lortab] Allergy (Verified 06/28/19 05:51) Past Medical History - Past Medical History Cardiac Medical History: Denies: Hx Coronary Artery Disease, Hx Heart Attack, Hx Hypertension Pulmonary Medical History: Reports: Hx Asthma - albuterol prn Denies: Hx Bronchitis, Hx COPD, Hx Pneumonia Neurological Medical History: Denies: Hx Cerebrovascular Accident, Hx Seizures Musculoskeltal Medical History: Denies Hx Arthritis Past Surgical History: Reports: Hx Section, Hx Gynecologic Surgery - laproscopic ovaries - Immunizations Hx Diphtheria, Pertussis, Tetanus Vaccination: Yes - unk Physical Exam - Vital signs Vitals: Temp Pulse Resp BP Pulse Ox 99.4 F 110 H 18 145/93 H 98 06/29/20 17:28 06/29/20 17:28 06/29/20 17:28 06/29/20 17:28 06/29/20 17:28 - General General appearance: Alert Notes: appears to feel unwell - Abdominal Tenderness: Tender - Generalized abdomen Course - Vital Signs Vital signs: Temp Pulse Resp BP Pulse Ox 99.4 F 110 H 18 145/93 H 98 06/29/20 17:28 06/29/20 17:28 06/29/20 17:28 06/29/20 17:28 06/29/20 17:28 Doctor's Discharge - Discharge Referrals: ESTRADA BECK PA-C [Primary Care Provider] - Follow up as needed
--- NOTE | 2020-06-29 18:41 | ER Document Report ---
ED Flu Like - General Chief Complaint: Flu Symptoms Stated Complaint: FLU SYMPTOMS Time Seen by Provider: 06/29/20 17:21 Primary Care Provider: ESTRADA BECK PA-C [Primary Care Provider] - Follow up as needed Notes: CHIEF COMPLAINT: Nausea, diarrhea, loss of taste HPI: 39-year-old female presenting to the emergency department [facility] for evaluation of nausea with multiple episodes of diarrhea ongoing over the last 6 days intermittent abdominal cramping. Patient states she lost taste last night. Has had low-grade fevers over the last 3 or 4 days with lack of energy. Has had sore throat for 2 days ROS: See HPI - all other systems were reviewed and are otherwise negative Constitutional: Positive low-grade fever Eyes: no drainage, no blurred vision ENT: no runny nose, + sore throat Cardiovascular: no chest pain Resp: no SOB, no cough GI: no vomiting, + diarrhea, positive intermittent abdominal pain, positive nausea : no dysuria Integumentary: no rash Allergy: no hives Musculoskeletal: no extremity pain or swelling Neurological: no numbness/tingling, positive generalized weakness MEDICATIONS: I agree with the patient medications as charted by the RN. ALLERGIES: I agree with the allergies as charted by the RN. PAST MEDICAL HISTORY/PAST SURGICAL HISTORY: Reviewed and agree as charted by RN. SOCIAL HISTORY: Reviewed and agree as charted by RN. FAMILY HISTORY: No significant familial comorbid conditions directly related to patient complaint EXAM: Reviewed vital signs as charted by RN. CONSTITUTIONAL: Alert and oriented and responds appropriately to questions. [place]-appearing; well-nourished HEAD: Normocephalic; atraumatic EYES: PERRL; Conjunctivae clear, sclerae non-icteric ENT: normal nose; no rhinorrhea; moist mucous membranes; pharynx without lesions noted, no uvula edema or deviation, no tonsillar hypertrophy, phonation normal NECK: Supple without meningismus; non-tender; no cervical lymphadenopathy, no masses CARD: Mild tachycardia; no murmurs, no clicks, no rubs, no gallops; symmetric distal pulses RESP: Normal chest excursion without splinting or tachypnea; breath sounds clear and equal bilaterally; no wheezes, no rhonchi, no rales, pulse oximetry 97% on room air not hypoxic ABD/GI: Normal bowel sounds; non-distended; soft, non-tender, no rebound, no guarding; no palpable organomegaly or masses. BACK: The back appears normal and is non-tender to palpation, there is no CVA tenderness EXT: Normal ROM in all joints; non-tender to palpation; no cyanosis, no e ffusions, no edema SKIN: Slightly pale color for age and race; warm; dry; good turgor; no acute l esions noted NEURO: Moves all extremities equally; Motor and sensory function intact PSYCH: The patient's mood and manner are appropriate. Grooming and personal hygiene are appropriate. MDM: 39-year-old female 6 days of nausea with multiple episodes of diarrhea sore throat for 2 days loss of taste for 2 days, initial screening labs via triage process including abdominal labs, influenza strep, COVID testing. She has no abdominal pain on palpation of the abdomen that would suggest need for CT i maging at this time TRAVEL OUTSIDE OF THE [place] IN LAST 30 DAYS: No - Related Data Allergies/Adverse Reactions: Sulfa (Sulfonamide Antibiotics) Allergy (Severe, Verified 06/21/19 08:30) Seizures acetaminophen [From Lortab] Allergy (Verified 06/28/19 05:51) hydrocodone [From Lortab] Allergy (Verified 06/28/19 05:51) Past Medical History - Social History Smoking Status: Unknown if Ever Smoked Family History: Reviewed & Not Pertinent - Past Medical History Cardiac Medical History: Denies: Hx Coronary Artery Disease, Hx Heart Attack, Hx Hypertension Pulmonary Medical History: Reports: Hx Asthma - albuterol prn Denies: Hx Bronchitis, Hx COPD, Hx Pneumonia Neurological Medical History: Denies: Hx Cerebrovascular Accident, Hx Seizures Musculoskeletal Medical History: Denies Hx Arthritis Past Surgical History: Reports: Hx Section, Hx Gynecologic Surgery - laproscopic ovaries - Immunizations Hx Diphtheria, Pertussis, Tetanus Vaccination: Yes - unk Physical Exam - Vital signs Vitals: Temp Pulse Resp BP Pulse Ox 99.4 F 110 H 18 145/93 H 98 06/29/20 17:28 06/29/20 17:28 06/29/20 17:28 06/29/20 17:28 06/29/20 17:28 Course - Re-evaluation Re-evalutation: 06/29/20 21:35 Patient states she is feeling better. No abdominal pain on repeat exam. Nausea has improved. She states that she feels like she has a fever we will have nursing recheck vital signs and notify me of any abnormalities. Patient's daughter has apparently called her and is also ill with very similar issues. Chester pimentel likely has COVID-19. She will self quarantine at home pending results. Will place her on Zofran at home which she did well with here tonight. 06/29/20 21:37 - Vital Signs Vital signs: Temp Pulse Resp BP Pulse Ox 99.4 F 110 H 18 145/93 H 98 06/29/20 17:28 06/29/20 17:28 06/29/20 17:28 06/29/20 17:28 06/29/20 17:28 - Laboratory Result Diagrams: 06/29/20 20:07 06/29/20 20:07 Laboratory results interpreted by me: 06/29/20 18:17 Urine Blood MODERATE H Urine Urobilinogen 2.0 H Discharge - Discharge Clinical Impression: Person under investigation for COVID-19 Vomiting Qualifiers: Vomiting type: unspecified Vomiting Intractability: non-intractable Nausea presence: with nausea Qualified Code(s): R11.2 - Nausea with vomiting, unspecified Condition: Stable Disposition: HOME, SELF-CARE Instructions: Vomiting ([facility]), COVID-19 Guidance for Persons Under Investigation Additional Instructions: Take Zofran for any nausea or vomiting. Hydrate well at home. Motrin or Tylenol for fever. You are considered a person under investigation for COVID-19 at this time, self quarantine at home pending her test results which may take 2 to 5 days. You should hear from someone at the hospital about your test results. Return for onset of abdominal pain or worsening symptoms Prescriptions: Ondansetron [Zofran Odt 4 mg Tablet] 1 - 2 tab PO Q4H PRN #15 tab.rapdis PRN Reason: For Nausea/Vomiting Forms: Return to Work Referrals: ESTRADA BECK PA-C [Primary Care Provider] - Follow up as needed
[2020-06-29 18:57] LABS: APPEARANCE,URINE SLIGHTLY-CLOUDY; BILIRUBIN,URINE NEGATIVE (NEGATIVE); COLOR,URINE YELLOW; GLUCOSE, URINE NEGATIVE (NEGATIVE); KETONES,URINE NEGATIVE (NEGATIVE); LEUKOCYTE ESTERASE,URINE NEGATIVE (NEGATIVE); NITRITE,URINE NEGATIVE (NEGATIVE); PROTEIN,URINE NEGATIVE (NEGATIVE); URINE SPECIFIC GRAVITY 1.021
[2020-06-29 18:59] LABS: A TYPE INFLUENZA AG NEGATIVE (NEGATIVE); B INFLUENZA AG NEGATIVE (NEGATIVE)
[2020-06-29 20:39] LABS: ABSOLUTE EOSINOPHILS # (AUTO) 0.1 10^3/uL (0.0-0.6); ABSOLUTE LYMPHOCYTES (AUTO) 2.1 10^3/uL (0.5-4.7); ABSOLUTE MONOCYTES (AUTO) 0.5 10^3/uL (0.1-1.4); ABSOLUTE NEUT (AUTO) 4.5 10^3/uL (1.7-8.2); BASOPHILS % (AUTO) 0.5 % (0-2); EOSINOPHILS % (AUTO) 1.3 % (0-6); HEMATOCRIT 37.4 % (36.0-47.0); LYMPHOCYTES % (AUTO) 29.5 % (13-45); MEAN CORPUSCULAR HEMOGLOBIN 31.9 pg (27.0-33.4); MEAN CORPUSCULAR HGB CONC 34.9 g/dL (32.0-36.0); MEAN CORPUSCULAR VOLUME 91 fl (80-97); MONOCYTES % (AUTO) 6.5 % (3-13); PLATELET COUNT 249 10^3/uL (150-450); RED BLOOD COUNT 4.09 10^6/uL (3.72-5.28); RED CELL DISTRIBUTION WIDTH 13.1 % (11.5-14.0); SEGMENTED NEUTROPHILS % (AUTO) 62.2 % (42-78); TOTAL CELLS COUNTED % (AUTO) 100 %; WHITE BLOOD COUNT 7.3 10^3/uL (4.0-10.5)
[2020-06-29 20:47] LABS: ALBUMIN 4.5 g/dL (3.5-5.0); ALKALINE PHOSPHATASE 103 U/L (38-126); ANION GAP 7 (5-19); ASPARTATE AMINO TRANSFERASE 19 U/L (14-36); BILIRUBIN,DIRECT 0.3 mg/dL (0.0-0.4); BILIRUBIN,TOTAL 0.4 mg/dL (0.2-1.3); BLOOD UREA NITROGEN 13 mg/dL (7-20); CALCIUM 9.3 mg/dL (8.4-10.2); CARBON DIOXIDE 28 mmol/L (22-30); CHLORIDE 103 mmol/L (98-107); GLUCOSE 102 mg/dL (75-110); POTASSIUM 3.9 mmol/L (3.6-5.0)
== END 2020-06-29 21:55 | disposition home or self-care (01) ==
LOC: ER 17:13
DX: R11.2 Nausea with vomiting, unspecified (principal); R19.7 Diarrhea, unspecified; R43.9 Unspecified disturbances of smell and taste; R10.9 Unspecified abdominal pain; R50.9 Fever, unspecified; J02.9 Acute pharyngitis, unspecified; J45.909 Unspecified asthma, uncomplicated; Z88.2 Allergy status to sulfonamides; Z88.8 Allergy status to other drugs, medicaments and biological substances; Z88.6 Allergy status to analgesic agent; Z88.5 Allergy status to narcotic agent; Z20.828 Contact with and (suspected) exposure to other viral communicable diseases
CPT/HCPCS: 99284; 96361; 96374; 36415; 87070; 87880; 83690; 84703; 85025; 87635; 86308; 80053; 81001; 87804; J2405; J7030; C9803